=== PATIENT | female | born 1960 | race Caucasian/White ===

== ENCOUNTER → 2017-02-06 | Outpatient (CLI) | payer OTHER ==
[~2017-02-06] MED LIST: ACETAMINOPHEN PO; AMITRIPTYLINE H25 MG PO; BUSPIRONE HCL7.5 MG PO; DULOXETINE HCL60 MG PO; FIORICET-COD 51 EACH PO; IMITREX PO; LEXAPRO PO; LOMOTIL TABLET1 TAB PO; METOPROLOL SUCC25 MG PO; MYSOLINE250 MG PO; NEURONTIN300 MG PO; PHENERGAN PO; PREMARIN0.625 MG PO; PROTONIX PO; PURINETHOL50 MG PO; REGLAN PO; ZETIA PO
--- NOTE | ~2017-02-06 | EKG ---
PATIENT: NAIMA COLVIN UNIT #: [id number] Ventricular Rate: 67 BPM Atrial Rate: 67 BPM P-R Interval: 134 ms QRS Duration: 80 ms Q-T Interval: 392 ms QTC Calculation(Bezet): 414 ms P [place]: 48 degrees Calculated R [place]: 0 degrees Calculated T [place]: 7 degrees Diagnosis Line: Normal sinus rhythm Diagnosis Line: ST and T wave abnormality, consider anterior Diagnosis Line: ischemia Diagnosis Line: Abnormal ECG Diagnosis Line: No previous ECGs available Diagnosis Line: Confirmed by RADHA FAUSTIN MD ([id number]) on Diagnosis Line: 02/08/2017 7:28:14 AM INTERPRETING MD: ROXIE ADAMS
[2017-02-06 12:58] LABS: HEMATOCRIT 37.3 % (35.0-45.0); HEMOGLOBIN 12.2 gm/dL (12.0-16.0); MEAN CELL VOLUME 85.8 FL (83-96); MEAN CORPUSCULAR HGB CONC 32.6 g/dL (30-36); MEAN PLATELET VOLUME 8.7 FL (6.5-11.5); RED BLOOD COUNT 4.34 X10e (3.90-5.30); RED CELL DISTRIBUTION WIDTH 14.3 % (11.0-15.5); WHITE BLOOD COUNT 9.4 X10e3 (4.0-10.5)
[2017-02-06 13:23] LABS: BUN/CREATININE RATIO 11.81; CALCIUM SERUM 10.2 mg/dL (8.4-10.2); CREATININE SERUM 1.1 mg/dL (0.6-1.4); GLOM FILT RATE Estimated 55.7 mL/min (>60)
== END | disposition home or self-care (01) ==
LOC: CAMB 02-05 15:00 → EDSTATUS 15:00
PROVIDERS: Specialist
DX: Z01.818 Encounter for other preprocedural examination (principal); D35.1 Benign neoplasm of parathyroid gland; R94.31 Abnormal electrocardiogram [ECG] [EKG]
CPT/HCPCS: 36415; 80048; 85027; 93005

== ENCOUNTER → 2017-02-12 | Day surgery (SDC) | payer OTHER ==
--- NOTE | ~2017-02-12 | NM100 ---
[facility] A Service [facility] RADIOLOGY TEXT RESULTS PATIENT: NAIMA COLVIN LOCATION: [facility] #: [id number] : 58 UNIT #: [id number] AGE: [address]: Manjit Manzanares MD SEX: F ORDER DR: [id number] [address] [address] [id number] O MR#: [id number] Acc #: [id number] NAME: NAIMA COLVIN. : 1960 SEX: F STUDY DATE/TIME: 02/12/2017 7:30 [facility] RO[facility]: STUDY DESCRIPTION: NM Inj Sestamibi For Probe ID Attending Physician: Manjit Manzanares M.D. Ordering Physician: Manjit Manzanares M.D. Primary Care Physician: Juan Machado Jr., M.D. MEDICAL IMAGING REPORT This report is preliminary unless electronic signature is present EXAM Nuclear medicine Sestamibi for probe identification. DATE 02/12/2017 HISTORY Right parathyroid adenoma. Sestamibi injection requested for parathyroid adenoma surgery. COMPARISON None. FINDINGS 23.1 mCi technetium 99m sestamibi was injected into the left hand vein at 07:42 by the nuclear criticality safety engineer. Injection was performed for intraoperative localization of a parathyroid adenoma. No images were obtained. IMPRESSION 23.1 mCi technetium 99m sestamibi injection for parathyroid adenoma localization surgery. Dictated by... Ladi Jean-Baptiste M.D. THIS IS AN ELECTRONICALLY VERIFIED REPORT Ladi Jean-Baptiste M.D. at 02/15/2017 9:33 PM [facility]/brett TD: 02/13/2017 12:50 JOB #: [id number] [facility] A Service [facility] RADIOLOGY TEXT RESULTS PATIENT: NAIMA COLVIN [facility] [id number] : 58 UNIT #: [id number] AGE: [address]: Manjit Manzanares MD SEX: F ORDER DR: MEDICAL IMAGING REPORT Page 1 of 1 COPY
--- NOTE | ~2017-02-12 | OR ---
Unit #: [id number] #: [id number] Patient: NAIMA COLVIN [id number] [address] [address] [id number] O MR#: [id number] NAME: NAIMA COLVIN. ROOM: Date of Procedure: 02/12/2017 Admission Date: 02/12/2017 Surgeon: Manjit Manzanares M.D. : 1960 Attending Physician: Manjit Manzanares M.D. Primary Care Physician: Juan Machado Jr., M.D. OPERATIVE REPORT PREOPERATIVE DIAGNOSES 1. Hyperparathyroidism. 2. Parathyroid adenoma. POSTOPERATIVE DIAGNOSIS 1. Hyperparathyroidism. 2. Parathyroid adenoma. PROCEDURE PERFORMED Minimally invasive radioguided right parathyroidectomy. ANESTHESIA By general endotracheal anesthesia with NIMs monitoring tube. FINDINGS Included a right likely upper parathyroid adenoma. HISTORY This is a 56-year-old female, who has had a history of increasing calcium levels as well as elevated PTH. This was followed conservatively for several months. However, her levels did progressively increased and she had an obvious likely adenoma noted on ultrasound as well as sestamibi scan. DESCRIPTION OF PROCEDURE The patient was placed supine on the operating table. Anesthesia was achieved by general endotracheal anesthesia with NIMs monitoring tube and the recurrent laryngeal nerve was monitored throughout the case. The patient went for a nuclear injection prior to the case and a gamma probe was used to identify the location of a right lower neck incision. Dissection was carried down through subcutaneous tissues. Several anterior jugular veins were divided and ligated with Focus Harmonic Scalpel. Strap muscles were identified medially and SCM laterally. A plane was developed in between these muscles. The great vessels were then retracted laterally and the thyroid gland was retracted medially and in this area, a large parathyroid adenoma was easily identified and this was the highest point of uptake with the gamma probe. This was carefully excised with bipolar cautery. There was no encounter with the recurrent laryngeal nerve during this dissection. Once the gland was removed, there was a high uptake in the gland out of the field and in the thyroid bed, there was no further high uptake on the gamma probe reading. Wound was irrigated and then closed with 4-0 Vicryl interrupted deep stitch and 5-0 Unit #: [id number] #: [id number] Patient: NAIMA COVLIN running subcuticular Prolene. The patient was awakened and transferred to recovery in stable condition. Dictated by... Dwight Morrison TD: 02/13/2017 09:26 JOB #: [id number] OPERATIVE REPORT Page 1 of 1 X Manjit Manzanares MD X PROCEDURE OPERATIVE NOTE
== END | disposition home or self-care (01) ==
LOC: CSUR 06:36 → CNUC 06:36 → CSUR 09:30
DX: E21.0 Primary hyperparathyroidism (principal); E04.1 Nontoxic single thyroid nodule; J45.909 Unspecified asthma, uncomplicated; J38.7 Other diseases of larynx; J38.00 Paralysis of vocal cords and larynx, unspecified; G47.33 Obstructive sleep apnea (adult) (pediatric); G43.909 Migraine, unspecified, not intractable, without status migrainosus; I10 Essential (primary) hypertension; M19.90 Unspecified osteoarthritis, unspecified site; Z91.040 Latex allergy status; Z96.659 Presence of unspecified artificial knee joint; Z79.899 Other long term (current) drug therapy; Z90.710 Acquired absence of both cervix and uterus; Z90.49 Acquired absence of other specified parts of digestive tract; Z98.890 Other specified postprocedural states
CPT/HCPCS: 88305; A9500; J0330; J0690; J2250; J2405; J3010

== ENCOUNTER → 2017-02-19 | Outpatient (CLI) | payer OTHER ==
[2017-02-22 00:53] LABS: CALCIUM (PTHINTACT) 8.6 mg/dL (8.6-10.4)
== END | disposition home or self-care (01) ==
LOC: CLAB 06:55
PROVIDERS: Specialist
DX: D35.1 Benign neoplasm of parathyroid gland (principal)
CPT/HCPCS: 36415; 82310; 83970